=== PATIENT | female | born 1980 | race Caucasian/White ===

== ENCOUNTER 2016-10-17 12:26 | Outpatient (CLI) | payer MEDICAID ==
[~2016-10-17] VITALS: Ht 168.9 cm; Wt 126.1 kg
[2016-10-17] MEDS ORDERED: CARI350T PO (12:38)
[2016-10-17] MEDS ORDERED: ZOLP10TA PO (12:38)
[2016-10-17] MEDS ORDERED: OMEP20TA7 PO (12:38)
[2016-10-17] MEDS ORDERED: TOPI200C5 PO (12:38)
[2016-10-17] MEDS ORDERED: OXYC-202 PO (12:38)
[2016-10-17] MEDS ORDERED: DICY10CA59 PO (12:38)
[2016-10-17] MEDS ORDERED: FENT1PAT11 TD (12:38)
[2016-10-17] MEDS ORDERED: HYDR12.56 PO (12:38)
[2016-10-17 12:55] VITALS: BP 120/74
[2016-10-17 13:04] LABS: BASOPHILS % (AUTO) 0 % (0-10); EOSINOPHILS # (AUTO) 0.2 10^3/uL (0.0-0.3); EOSINOPHILS % (AUTO) 3 % (0-10); LYMPHOCYTES % (AUTO) 35 % (12-44); MEAN CORPUSCULAR HEMOGLOBIN 30 PG (25-34); MEAN CORPUSCULAR HGB CONC 35 G/DL (32-36); MEAN CORPUSCULAR VOLUME 87 FL (80-99); MONOCYTES # (AUTO) 0.4 X 10^3 (0.0-1.0); MONOCYTES % (AUTO) 6 % (0-12); NEUTROPHILS # (AUTO) 3.2 X 10^3 (1.8-7.8); NEUTROPHILS % (AUTO) 55 % (42-75); PLATELET COUNT 223 10^3/uL (130-400); RED BLOOD COUNT 4.39 10^6/uL (4.35-5.85); RED CELL DISTRIBUTION WIDTH 14.9 % (10.0-14.5); WHITE BLOOD COUNT 5.8 10^3/uL (4.3-11.0)
[2016-10-17 13:18] LABS: ALANINE AMINOTRANSFERASE 25 U/L (0-55); ALBUMIN 3.8 G/DL (3.2-4.5); ANION GAP 4 MMOL/L (5-14); ASPARTATE AMINO TRANSFERASE 20 U/L (5-34); BILIRUBIN,TOTAL 0.3 MG/DL (0.1-1.0); BLOOD UREA NITROGEN 14 MG/DL (7-18); BUN/CREATININE RATIO 23; CALCIUM 8.7 MG/DL (8.5-10.1); CARBON DIOXIDE 27 MMOL/L (21-32); CHLORIDE 110 MMOL/L (98-107); CREATININE SERUM 0.61 MG/DL (0.60-1.30); GFR ESTIMATED > 60; GLUCOSE 100 MG/DL (70-105); POTASSIUM 3.5 MMOL/L (3.6-5.0); SODIUM 141 MMOL/L (135-145); TOTAL PROTEIN 6.6 G/DL (6.4-8.2)
== END 2016-10-17 12:50 | disposition home or self-care (01) ==
LOC: PREOP 12:26
PROVIDERS: ATTEND Surgery
DX: Z01.812 Encounter for preprocedural laboratory examination (principal); Z11.2 Encounter for screening for other bacterial diseases; K81.9 Cholecystitis, unspecified
CPT/HCPCS: 36415; 80053; 85025; 87081

== ENCOUNTER 2016-10-21 07:34 | Day surgery (SDC) | payer MEDICAID ==
[~2016-10-21] VITALS: Ht 168.9 cm; Wt 126.1 kg
[2016-10-21 07:33] VITALS: BP 125/87
[~2016-10-21 07:34] MED LIST: CARI350T PO; DICY10CA59 PO; FENT1PAT11 TD; HYDR12.56 PO; OMEP20TA7 PO; OXYC-202 PO; TOPI200C5 PO; ZOLP10TA PO
[2016-10-21] MEDS ORDERED: ceFAZolin 2 GM/NS 50 ML IV ONE (07:45)
[2016-10-21] MEDS ORDERED: LIDOCAINE/EPI 1%-1:100,000 (XYLOCAINE) 20ML ONE ×2 (07:50→09:47)
[2016-10-21] MEDS ORDERED: FAMOTIDINE 20MG/2ML IV (PEPCID) IV ONE (08:00)
[2016-10-21] MEDS ORDERED: ONDANSETRON 4 MG/2 ML (SDV) Z0FRAN IV ONE (08:00)
[2016-10-21] MEDS: LACTATED RINGERS 1,000 ML IV PRN ×3 (08:27→12:09)
[2016-10-21] MEDS ORDERED: DEXAMETHASONE PF 10 MG/ML (DECADRON) VIAL ONE (08:36)
[2016-10-21] MEDS ORDERED: LIDOCAINE PF 2% 10 ML (XYLOCAINE) AMP ONE (08:36)
[2016-10-21] MEDS ORDERED: ONDANSETRON 4 MG/2 ML (SDV) Z0FRAN ONE ×2 (08:36→10:49)
[2016-10-21] MEDS ORDERED: SEVOFLURANE (ULTANE) 15 ML INHAL SOLN ONE ×4 (08:36→11:09)
[2016-10-21] MEDS ORDERED: proPOfol 200 MG/20 ML (DIPRIVAN) VIAL IV ONE (08:36)
[2016-10-21] MEDS ORDERED: ROCURONIUM 50 MG/5 ML (ZEMURON) VIAL IV ONE ×2 (08:36→10:15)
[2016-10-21] MEDS ORDERED: LACTATED RINGERS 1,000 ML IV ONE ×3 (08:36→11:38)
[2016-10-21] MEDS ORDERED: MIDAZOLAM 2 MG/2 ML (VERSED) VIAL ONE (08:37)
[2016-10-21] MEDS ORDERED: fentaNYL INJECTION 250 MCG/5 ML AMP ONE (08:37)
--- NOTE | 2016-10-21 09:11 | Progress Note-Pre Operative ---
Pre-Operative Progress Note H&P Reviewed The H&P was reviewed, patient examined and no changes noted. Date H&P Reviewed: Oct 21, 2016 Time H&P Reviewed: 09:02 Pre-Operative Diagnosis: Cholelithiasis/cholecystitis OLY MARQUEZ DO Oct 21, 2016 09:11
[2016-10-21] MEDS ORDERED: ceFAZolin 1,000 MG (ANCEF) VIAL ONE (09:31)
[2016-10-21] MEDS ORDERED: ceFAZolin INJECTION 1,000 MG in NS (IVPB) 50 ML IV ONE (10:00)
[2016-10-21] MEDS ORDERED: HYDROmorphone (DILAUDID) 2 MG/ML VIAL ONE (10:49)
[2016-10-21] MEDS ORDERED: fentaNYL INJECTION 100 MCG/2 ML AMP ONE ×2 (10:49→11:08)
[2016-10-21] MEDS ORDERED: NEOSTIGMINE (BLOXIVERZ ) 1 MG/1ML 10 ML VIAL ONE (11:00)
[2016-10-21] MEDS ORDERED: GLYCOPYRROLATE 0.2 MG/ML (ROBINUL) 2 ML VIAL ONE (11:00)
--- NOTE | 2016-10-21 11:24 | Progress Note-Post Operative ---
Post-Operative Progess Note Surgeon (s)/Steam Gigger (s) Surgeon OLY MARQUEZ DO Steam Gigger: Chucho Pre-Operative Diagnosis Cholelithiasis/cholecystitis Post-Operative Diagnosis Same plus Adhesions Incarcerated Ventral/Incisional hernia MO Post-Op Procedure Note Date of Procedure: Oct 21, 2016 Name of Procedure Performed: Lap Winter w/ IOC and extensive CHAPIS Description of the Procedure: Lap winter Findings of the Procedure extensive adhesions, incarcerated vent/inc hernia Anesthesia Type GET Estimated blood loss (mL): less than 20ml Specimen(s) collected/removed GB and contents Hernia Sac OLY MARQUEZ DO Oct 21, 2016 11:24
--- NOTE | 2016-10-21 11:30 | Diagnostic Imaging Report ---
INDICATION: Right upper quadrant pain. DISCUSSION: Fluoroscopic support was provided during intraoperative cholangiogram. Please see the operative report for full detail. There is progression of contrast into the duodenum. Fluoroscopy time: 43 seconds. Contrast: 7 mL Omnipaque 300. IMPRESSION: Intraoperative cholangiogram. Dictated by: Dictated on workstation # [id number]
--- NOTE | 2016-10-21 11:30 | Discharge Inst-Surgical ---
Discharge Inst-Surgical Depart Medication/Instructions New, Converted or Re-Newed RX: Other Patient Instructions Follow up Appt: Make appointment for 1 week. [phone] Instructions: No lifting greater than 10 pounds. No strenuous activity. May shower in 24 hours, no tub bath or soaking. Use incentive spirometer at home as directed. No Smoking Skin/Wound Care: May remove bandages, am 4/4 Symptoms to Report: Appetite Changes, Extremity Discoloration, Numbness/Tingling, Swelling Increased , Bleeding Excessive, Eyesight Changes, Pain Increased, Urine Color Change, Constipation(Persistent), Fever over 101 degree F, Pain/Pressure in chest, Urinating Difficulty, Cough Up/Vomit Blood, Heart Beat Irreg/Pounding, Pain/ Pressure in jaw, Vaginal Bleeding Increase, Cramps in feet or legs, Lightheadedness, Pain/Pressure in shoulder, Diarrhea(Persistent), Memory Changes Suddenly, Questions/Concerns, Weight gain consecutive days, Dizziness/ Fainting, Nausea/Vomiting, Shortness of Breath, Weight gain over 2 pounds. If eyes or skin turn yellow notify physician. If questions or concerns contact your physician Or seek help at emergency department. Activity Activity as Tolerated: Yes Activity Instructions: Avoid Pulling & Pushing, Avoid Stress to Incision, No Sports Driving Instructions: No Driving/Refer to Dr. Starr Discharge Diet: Low Fat/Low Cholesterol If Any Problems/Questions/Issu: Contact Your Physician, Go to Emergency Room Skin/Wound Care Infection Signs and Symptoms: Increased Redness, Foul Odor of Wound, Increased Drainage, Skin Itchy or Has a Rash, Increased Swelling, Temperature Above 101 F Bathing Instructions: Shower Stitches/[place]/Dermabond Dis: Dermabond Ice Pack: Ice On and Off Site OLY MARQUEZ DO Oct 21, 2016 11:30
[2016-10-21] MEDS: HYDROmorphone (DILAUDID) 2 MG/ML VIAL IVP PRN ×3 (11:33→11:53)
[2016-10-21] MEDS: fentaNYL INJECTION 100 MCG/2 ML AMP IVP PRN ×2 (11:38→11:46)
[2016-10-21] MEDS ORDERED: ONDANSETRON 4 MG/2 ML (SDV) Z0FRAN IVP PRN (11:45)
[2016-10-21] MEDS ORDERED: MEPERIDINE (DEMEROL) INJ 50 MG/ML IVP PRN (11:45)
[2016-10-21] MEDS ORDERED: PROMETHAZINE INJ 25 MG/ML (PHENERGAN) AMP IVP PRN (11:45)
[2016-10-21] MEDS ORDERED: PROMETHAZINE INJ 25 MG/ML (PHENERGAN) AMP ONE (11:55)
[2016-10-21 12:30] VITALS: BP 114/93
[2016-10-21] MEDS ORDERED: oxyCODONE/APAP 10/325MG (PERCOCET 10) TABLET PO ONE (12:36)
[2016-10-21] MEDS ORDERED: oxyCODONE/APAP 10/325MG (PERCOCET 10) TABLET PO PRN (12:45)
[2016-10-21 13:00] VITALS: BP 130/89
[2016-10-21 13:30] VITALS: BP 143/90
[2016-10-21] MEDS ORDERED: PROMETHAZINE INJ 25 MG/ML (PHENERGAN) AMP IVP ONE (13:30)
[2016-10-21 15:05] VITALS: BP 143/90
--- NOTE | 2016-10-22 10:50 | OPERATIVE REPORT ---
PROCEDURE PHYSICIAN: OLY PUTNAM DATE OF PROCEDURE: 10/21/2016 PREOPERATIVE DIAGNOSIS: 1. Cholelithiasis with cholecystitis. 2. Ventral incisional hernia. POSTOPERATIVE DIAGNOSIS: 1. Cholecystitis with cholelithiasis. 2. Incarcerated incisional ventral hernia. 3. Extensive adhesions. SURGEON: Dr. Putnam GREASE RENDERER: Dr. Rankin. ANESTHESIA: General endotracheal tube. PROCEDURE: Laparoscopic cholecystectomy with intraoperative cholangiogram. SPECIMENS: 1. Gallbladder and contents. 2. Hernia sac. BLOOD LOSS: Less than 20 mL. FLUIDS: Per anesthesia. POSTOPERATIVE: Stable. INDICATION FOR THE PROCEDURE: The patient is a 36-year-old female has been having pain in the right lower quadrant, associated with fried and fatty foods. She had an ultrasound performed which showed multiple stones in the gallbladder and diagnosed with cholelithiasis and cholecystitis. FINDINGS: The patient had extensive adhesions from her previous surgeries. She had a gastric bypass. She had a very long dilated gallbladder. Cholangiogram did not show any stones in the duct. She also had an incarcerated incisional ventral hernia. PROCEDURE NOTE: After informed consent was obtained patient brought to the operating room, placed on the table in supine position. She was sterilely prepped and draped in the normal fashion. Local lidocaine used to infiltrate the skin and midline, right on the previous incision. Made an incision with a number 11 blade, carried down through skin into subcutaneous tissue, deepened down to the subcutaneous tissue with blunt dissection as well as the Bovie electrocautery. Actually it was up high enough, could feel a small fascial defect probably a 1 1/2 to 2 cm defect. Able to grasp this and go through the hernia sac and finally get a spot and place the 11 mm trocar port. Able to get in with the camera and then placed 2 more ports in the right upper quadrant in the normal fashion using local lidocaine and an 11 blade for stab incision and the VersaStep system all done under direct visualization. I then started taking down adhesions; took some adhesions in the midline to be able to get the 11 mm trocar port in further and blow up the balloon, held in place. Then started taking down some adhesions across the falciform. Once I had taken these adhesions down then placed another port subxiphoid again using the VersaStep with a local lidocaine 11 blade for stab incision and the VersaStep trocar system. Once this was done then started taking down the adhesions to the liver. There is a lot of omentum stuck on the liver and to the gallbladder. This was extensive lysis of adhesions, probably took about an hour just to take down all the adhesions until we could free up the gallbladder taking care to stay way from any intestine. Upon entering noted the gallbladder is very dilated. Again had a lot of adhesions to it. We had to grasp the gallbladder almost half way down to be able to get good position. Grasped the gallbladder and took in the superior direction and then continued dissecting adhesions. Once we had finally freed the gallbladder up and actually the liver from all adhesions, then able to grasp down Abi's pouch and pulled in an inferolateral direction and started dissecting out the cystic duct and cystic artery. Able to get around the cystic duct. Placed one clip distally then get around the cystic artery. Placed one clip distally, two proximally. Cut the cystic duct half way through with Metzenbaum scissors. Placed cholangiogram catheter and shot the cholangiogram. It took two times, the second time able to get good spillage of dye down the common bile duct into the small intestine as well as up into the common hepatic and the right and left hepatics. Next, removed the cholangiogram catheter, placed 2 clips proximally on the cystic duct and cut the cystic duct and cystic artery with Metzenbaum scissors and started dissecting the gallbladder off the bed of the liver. Encountered the posterior branch of the cystic artery clipped twice proximally once distally and then cauterized in between to cut the duct and then continued taking the gallbladder off the bed of the liver with the L hook cautery. Once this was completely removed switched to a 5 mm camera. Paced the Endobag into the abdomen and then placed the gallbladder into the bag and then removed this through the supraumbilical incision. Placed the port back in the abdomen. At this point trying to plan the next surgery, ventral herniorrhaphy, went to the left side of the abdomen and were we replaced the port for the hernia procedure. There was a lot of adhesion; these were then carefully taken down as well so they would not be in our way. Then looked around, copiously irrigated with normal saline. No bleeding from the liver, suctioned this out. No other bleeding. The patient had been reversed Trendelenburg and rotated left. She was then placed supine and then removed all ports under direct visualization. Elected to cut off the hernia sac at the superior portion; cut this off and passed this off the table. Grasped the edges with 2 Kochers and then closed this fascial defect with 0 Vicryl [id number] suture; two of these were used to close this defect. Had palpated on the inside and could feel another defect lower but had talked with the patient, cannot fix these at this time. They are going to need mesh. Copiously irrigated all incisions with normal saline. Closed the supraumbilical incision with three 3-0 Vicryl subcutaneous sutures then closed the skin with 4-0 undyed Monocryl, five interrupted subcuticular stitches. The three small 5 millimeters incisions were closed with a single interrupted 4-0 undyed Monocryl subcuticular stitches. The area was clean and dried and Dermabond placed. The patient then transferred to recovery room in stable condition. Sponge and needle counts were correct at the end of the case. Dr. Rankin assisted in identifying anatomy, with retraction and with closure of the abdomen. Job ID: [id number] Dictated Date: 10/21/2016 11:51:23 Chalker Soles Date: 10/22/2016 10:29:59 / pernell
== END 2016-10-21 15:05 | disposition home or self-care (01) ==
LOC: SDC 07:34
PROVIDERS: ATTEND Surgery
DX: K80.10 Calculus of gallbladder with chronic cholecystitis without obstruction (principal); K43.0 Incisional hernia with obstruction, without gangrene
CPT/HCPCS: 84703; 88302; 88304

== ENCOUNTER → 2016-12-20 | Outpatient (CLI) | payer SELFPAY ==
[~2016-12-20] MED LIST changes: +LORA2ORA PO
== END ==
LOC: PREOP 12:27
PROVIDERS: ATTEND Surgery
DX: Z01.818 Encounter for other preprocedural examination (principal); K43.2 Incisional hernia without obstruction or gangrene

== ENCOUNTER → 2016-12-23 | Day surgery (SDC) | payer MEDICAID ==
[~2016-12-23] VITALS: Ht 168.9 cm; Wt 126.1 kg
[~2016-12-23] MED LIST changes: +DEXAMETHASONE PF 10 MG/ML (DECADRON) VIAL ONE; +FAMOTIDINE 20MG/2ML IV (PEPCID) IV ONE; +GLYCOPYRROLATE 0.2 MG/ML (ROBINUL) 2 ML VIAL ONE; +HYDROmorphone (DILAUDID) 2 MG/ML VIAL ONE; +LACTATED RINGERS 1,000 ML IV PRN; +LACTATED RINGERS 2,000 ML IV ONE; +LIDOCAINE PF 2% 5 ML (XYLOCAINE) VIAL ONE; +LIDOCAINE/EPI 1%-1:100,000 (XYLOCAINE) 20ML ONE; +MIDAZOLAM 2 MG/2 ML (VERSED) VIAL ONE; +NEOSTIGMINE (BLOXIVERZ ) 1 MG/1ML 10 ML VIAL ONE; +ONDANSETRON 4 MG/2 ML (SDV) Z0FRAN IVP PRN; +ONDANSETRON 4 MG/2 ML (SDV) Z0FRAN ONE; +PROMETHAZINE INJ 25 MG/ML (PHENERGAN) AMP IVP PRN; +ROCURONIUM 50 MG/5 ML (ZEMURON) VIAL IV ONE; +SEVOFLURANE (ULTANE) 15 ML INHAL SOLN ONE; +ceFAZolin 2 GM/NS 50 ML IV ONE; +fentaNYL INJECTION 100 MCG/2 ML AMP IV ONE; +fentaNYL INJECTION 100 MCG/2 ML AMP IVP ONE; +fentaNYL INJECTION 100 MCG/2 ML AMP IVP PRN; +fentaNYL INJECTION 250 MCG/5 ML AMP ONE; +morphine INJ 10 MG/ML 1ML (SYR OR VIAL) IVP PRN; +morphine INJ 4 MG/ML 1 ML (VIAL/SYRINGE) ONE; +oxyCODONE/APAP 10/325MG (PERCOCET 10) TABLET PO ONE; +proPOfol 200 MG/20 ML (DIPRIVAN) VIAL IV ONE
[2016-12-23 09:15] VITALS: BP 130/89
--- NOTE | 2016-12-23 13:21 | Progress Note-Pre Operative ---
Pre-Operative Progress Note H&P Reviewed The H&P was reviewed, patient examined and no changes noted. Time Seen by Provider: 12:37 Date H&P Reviewed: Dec 23, 2016 Time H&P Reviewed: 12:37 Pre-Operative Diagnosis: Incarcerated Incisional/Ventral Hernia OLY MARQUEZ DO Dec 23, 2016 13:21
--- NOTE | 2016-12-23 14:53 | Progress Note-Post Operative ---
Post-Operative Progess Note Surgeon (s)/Real Estate Professional (s) Surgeon OLY MARQUEZ DO Real Estate Professional: Chucho Pre-Operative Diagnosis Incarcerated Incisional/Ventral Hernia Post-Operative Diagnosis Same plus adhesions Procedure & Operative Findings Date of Procedure 12/23/16 Procedure Performed/Findings Lap Ventral/Inc herniarraphy with mesh placement Anesthesia Type GET Estimated Blood Loss Estimated blood loss (mL): less than 10 ml Specimens/Packing Specimens Removed hernia sac OLY MARQUEZ DO Dec 23, 2016 14:52
[2016-12-23] MEDS: HYDROmorphone (DILAUDID) 2 MG/ML VIAL IVP PRN ×4 (14:55→15:25)
--- NOTE | 2016-12-23 14:56 | Discharge Inst-Surgical ---
Discharge Inst-Surgical Depart Medication/Instructions New, Converted or Re-Newed RX: Other (Pt already has home pain meds) Patient Instructions Follow up Appt: Make appointment for 1 week. Instructions: No lifting greater than 10 pounds. No strenuous activity. May shower in 24 hours, no tub bath or soaking. Use incentive spirometer at home as directed. No Smoking Skin/Wound Care: May remove band-Aids in am. Dermabond will start to peel off in 1-2 weeks Symptoms to Report: Appetite Changes, Extremity Discoloration, Numbness/Tingling, Swelling Increased , Bleeding Excessive, Eyesight Changes, Pain Increased, Urine Color Change, Constipation(Persistent), Fever over 101 degree F, Pain/Pressure in chest, Urinating Difficulty, Cough Up/Vomit Blood, Heart Beat Irreg/Pounding, Pain/ Pressure in jaw, Vaginal Bleeding Increase, Cramps in feet or legs, Lightheadedness, Pain/Pressure in shoulder, Diarrhea(Persistent), Memory Changes Suddenly, Questions/Concerns, Weight gain consecutive days, Dizziness/ Fainting, Nausea/Vomiting, Shortness of Breath, Weight gain over 2 pounds If questions or concerns contact your physician Or seek help at emergency department. Activity Activity as Tolerated: Yes Activity Instructions: Avoid Pulling & Pushing, Avoid Stress to Incision Driving Instructions: No Driving/Refer to Dr. Starr Discharge Diet: No Restrictions Diet After 24 Hours: Clear Liquid if Nauseous If Any Problems/Questions/Issu: Contact Your Physician, Go to Emergency Room Skin/Wound Care Infection Signs and Symptoms: Increased Redness, Foul Odor of Wound, Increased Drainage, Skin Itchy or Has a Rash, Increased Swelling, Temperature Above 101 F Wound Care Comment: Heating pad for neck and shoulder may be helpful tonight Bathing Instructions: Shower Operative Area Clean and Dry: Keep Incision Clean/Dry Stitches/Raquel/Dermabond Dis: Dermabond Ice Pack: Ice On and Off Site (for pain as needed) OLY MARQUEZ DO Dec 23, 2016 14:56
[2016-12-23 16:00] VITALS: BP 135/89
[2016-12-23 16:30] VITALS: BP 130/89
[2016-12-23 17:00] VITALS: BP 129/82
[2016-12-23 17:30] VITALS: BP 129/82
--- NOTE | 2016-12-24 22:01 | OPERATIVE REPORT ---
DATE OF SERVICE: 12/23/2016 PREOPERATIVE DIAGNOSES: 1. Ventral incisional incarcerated hernia. 2. Morbid obesity. POSTOPERATIVE DIAGNOSES: 1. Ventral incisional incarcerated hernia. 2. Morbid obesity. PROCEDURE: Laparoscopic ventral incisional herniorrhaphy with mesh placement. SURGEON: Dr. Putnam. HOT BLASTER: Dr. Rankin. ANESTHESIA: General endotracheal tube. SPECIMEN: Hernia sac. BLOOD LOSS: Less than 10 mL. FLUIDS: Per anesthesia. POSTOPERATIVE: Stable. INDICATION FOR PROCEDURE: The patient is a 36-year-old female who has been having pain in the midline of her upper epigastric area. This is seen on CT and on previous lap gunnar as an incarcerated ventral incisional hernia. FINDINGS: The patient had an incarcerated ventral incisional hernia closed primarily and then mesh placed. PROCEDURE NOTE: After informed consent was obtained, the patient was brought to the operating room and placed on the table in supine position. She was prepped and draped in the normal fashion. Local lidocaine was used to infiltrate the left upper quadrant and then made and incision with a #11 blade, carried down through the skin into the subcutaneous tissue, then deep down through the subcutaneous tissue Bovie electrocautery down to the fascia. The fascia was incised with electrocautery. Bluntly the muscle and went through the posterior fascia and then bluntly entered the abdomen, placed 0-Vicryl figure of eight suture and then placed 11mm trocar port under direct visualization. She had multiple adhesions in the upper abdomen, able to place two more ports in the normal fashion using local lidocaine and an 11-blade for the stab incision and the VersaStep system, all done under direct visualization, one in the left lower quadrant, one in the right midline just a little bit below the level of the umbilicus. Then, using LigaSure I started taking down these adhesions to get these off the abdominal wall, carefully taking these down so that we could get a good look at the area. She also had adhesions above the liver. These were also carefully taken down with a LigaSure, clamping, coagulating and transecting, and then carefully pulling the omentum and fat out of the ventral incisional hernia. Once we completely removed it and removed a portion of the hernia sac, passed this off the table. She also appeared to have a portion of the stomach up, attached to the abdominal wall above the liver in the left upper quadrant. This was left alone. Cleared enough space to be able to place a piece of mesh, but first elected to close this hernia defect that looked to be about 3 or 4 cm, elected to pass an 0-Vicryl. I made a small stab incision above the defect and then passed the 0-Vicryl with a DaveVern to make a [id number] to close this. It closed nicely; I actually took a picture before and after, and then elected to place a Bard mesh. The mesh had balloon to hold it in place. This was placed into the abdomen through the left lowed quadrant port incision and then grasped the catheter and pulled this up through the small stab incision and then blew up the balloon to hold it up in place so we could see abdominal wall. It was a 4-1/2 inch mesh to be able to leave good margins, about four to five cm on either side to cover this hernia defect. This was then tacked in place with a Securestrap, tacking it 12, nine, six and three o'clock position and in between at about one cm intervals, removed the balloon and then tacked another set of tacks in the middle to, again, hold this mesh in good position. The pneumoperitoneum escaped a little bit and mesh still stayed up nicely in good position and at this point then removed all ports and direct visualization, allowing the pneumoperitoneum to escape, as well as suction it out. Closed the left upper quadrant incision, closing the fascia with 0-Vicryl suture previously placed, copiously irrigated all incisions with normal saline, closing the left lower quadrant incision with three interrupted 4-0 Undyed Monocryl subcuticular stitches, closed the small five mm incisions with single interrupted 4-0 Undyed Monocryl subcuticular stitch and also closed the small stab incision where we had closed the hernia defect primarily, as well as brought the catheter for the balloon up, closed this with another 4-0 Undyed Monocryl subcuticular stitch. Area was cleaned and dried, Dermabond placed and patient then transferred to recovery room in stable condition. Sponge, instrument and needle count correct at the end of the case. Dr. Rankin assisted in this case. He made incisions, placed ports, helped close, helped identify anatomy and used the LigaSure as well to take down some of the adhesions. His work was necessary in this case. Job ID: [id number] DocumentID: [id number] Dictated Date: 12/24/2016 13:54:53 Human Resource Analyst Date: 12/24/2016 22:00:37 Dictated By: DO BARBI VAUGHN
== END | disposition home or self-care (01) ==
LOC: SDC 08:04
PROVIDERS: ATTEND Surgery
DX: K43.2 Incisional hernia without obstruction or gangrene (principal); E66.01 Morbid (severe) obesity due to excess calories; Z68.41 Body mass index [BMI] 40.0-44.9, adult; Z79.899 Other long term (current) drug therapy
CPT/HCPCS: 84703; 87081

== ENCOUNTER 2021-07-30 05:35 | Outpatient (CLI) | payer MEDICAID ==
[~2021-07-30] VITALS: Ht 167.6 cm; Wt 143.0 kg
[~2021-07-30 05:35] MED LIST changes: -DEXAMETHASONE PF 10 MG/ML (DECADRON) VIAL ONE; -FAMOTIDINE 20MG/2ML IV (PEPCID) IV ONE; -GLYCOPYRROLATE 0.2 MG/ML (ROBINUL) 2 ML VIAL ONE; -HYDROmorphone (DILAUDID) 2 MG/ML VIAL ONE; -LACTATED RINGERS 1,000 ML IV PRN; -LACTATED RINGERS 2,000 ML IV ONE; -LIDOCAINE PF 2% 5 ML (XYLOCAINE) VIAL ONE; -LIDOCAINE/EPI 1%-1:100,000 (XYLOCAINE) 20ML ONE; -MIDAZOLAM 2 MG/2 ML (VERSED) VIAL ONE; -NEOSTIGMINE (BLOXIVERZ ) 1 MG/1ML 10 ML VIAL ONE; -ONDANSETRON 4 MG/2 ML (SDV) Z0FRAN IVP PRN; -ONDANSETRON 4 MG/2 ML (SDV) Z0FRAN ONE; -OXYC-202 PO; +OXYC1TAB12 PO; -PROMETHAZINE INJ 25 MG/ML (PHENERGAN) AMP IVP PRN; -ROCURONIUM 50 MG/5 ML (ZEMURON) VIAL IV ONE; -SEVOFLURANE (ULTANE) 15 ML INHAL SOLN ONE; -ceFAZolin 2 GM/NS 50 ML IV ONE; -fentaNYL INJECTION 100 MCG/2 ML AMP IV ONE; -fentaNYL INJECTION 100 MCG/2 ML AMP IVP ONE; -fentaNYL INJECTION 100 MCG/2 ML AMP IVP PRN; -fentaNYL INJECTION 250 MCG/5 ML AMP ONE; -morphine INJ 10 MG/ML 1ML (SYR OR VIAL) IVP PRN; -morphine INJ 4 MG/ML 1 ML (VIAL/SYRINGE) ONE; -oxyCODONE/APAP 10/325MG (PERCOCET 10) TABLET PO ONE; -proPOfol 200 MG/20 ML (DIPRIVAN) VIAL IV ONE
[2021-07-31] MEDS ORDERED: DULO60CA7 PO (13:02)
[2021-07-31] MEDS ORDERED: CYCL10TA25 PO (13:02)
[2021-07-31] MEDS ORDERED: MV-M1TAB20 PO (13:02)
[2021-07-31] MEDS ORDERED: AMIT50TA3 PO (13:02)
[2021-07-31] MEDS ORDERED: GABA300S2 PO (13:02)
[2021-07-31] MEDS ORDERED: FERR-84 PO (13:02)
[2021-07-31] MEDS ORDERED: CLN.2T PO (13:02)
== END 2021-07-31 14:05 | disposition home or self-care (01) ==
LOC: PREOP 05:35
PROVIDERS: ATTEND Surgery
DX: Z01.818 Encounter for other preprocedural examination (principal)

== ENCOUNTER → 2021-08-06 | Day surgery (SDC) | payer MEDICARE, MEDICAID ==
[~2021-08-06] VITALS: Ht 167 cm; Wt 149.0 kg
[~2021-08-06] MED LIST changes: +AMIT50TA3 PO; +CLN.2T PO; +CYCL10TA25 PO; +DULO60CA7 PO; +FERR-84 PO; +GABA300S2 PO; +LACTATED RINGERS 1,000 ML IV STA; +MV-M1TAB20 PO; +PROPOFOL INJECTION 50 ML IV ONE
[2021-08-06 07:59] VITALS: BP 142/93
--- NOTE | 2021-08-06 08:23 | Progress Note-Pre Operative ---
Pre-Operative Progress Note H&P Reviewed The H&P was reviewed, patient examined and no changes noted. Time Seen by Provider: 08:18 Date H&P Reviewed: Aug 06, 2021 Time H&P Reviewed: 08:18 Pre-Operative Diagnosis: rectal bleeding OLY MARQUEZ DO Aug 06, 2021 08:23
[2021-08-06 08:45] VITALS: BP 112/83
[2021-08-06 08:48] VITALS: BP 112/83
[2021-08-06 09:20] VITALS: BP 128/75
--- NOTE | 2021-08-06 09:21 | Progress Note-Post Operative ---
Post-Operative Progess Note Surgeon (s)/Websphere Architect (s) Surgeon OLY MARQUEZ DO Websphere Architect: [place] Pro Pre-Operative Diagnosis rectal bleeding Post-Operative Diagnosis same plus fecal impaction Procedure & Operative Findings Date of Procedure 08/06/21 Procedure Performed/Findings Flexible Sigmoidoscopy PROCEDURE NOTE: After informed consent was obtained, the patient was brought to the endoscopy suite, placed in bed in left lateral decubitus position. She was administered IV sedation by the PHOTOGRAPHIC EQUIPMENT ASSEMBLER who then monitored her vitals the entire time, heart rate, blood pressure and pulse ox and the scope was inserted. Unfortunately, immediately encountered fecal material which was obscuring the scope. Pushed up to about 50 cm, maybe to splenic flexure and continued to see fecal material completely covering the segundo. At this point elected to cut the procedure short and remove scope. Coming down the descending colon down, into the sigmoid and then into the rectal vault. Fecal material in vault also and therefore did not retroflex the scope. Took a picture as I pulled scope out of rectum. The patient tolerated the procedure. She was recovered in endoscopy suite. Anesthesia Type IV sedation by PHOTOGRAPHIC EQUIPMENT ASSEMBLER Estimated Blood Loss Estimated blood loss (mL): none Specimens/Packing Specimens Removed none OLY MARQUEZ DO Aug 06, 2021 09:21
--- NOTE | 2021-08-06 09:23 | Endoscopy Discharge Instruct ---
Endo Procedure/Findings Findings 1.: Other Findings (fecal impaction) Discharge Instructions - Activity: You might feel a little sleepy until tomorrow. This is due to the medicine you received to relax you. Until tomorrow, you should: NOT drive a car, operate machinery or power tools. NOT drink any alcoholic beverages. NOT make any important decisions or sign importortant papers. Do not return to work until tomorrow, unless otherwise instructed. Resume previous activities tomorrow. Diet: Start by taking liquids. If you tolerate liquids, advance to solid food. 1.: Other Recommendation (Repeat soon, at pt's convenience) Notify Physician - If you experience excessive bleeding, unusual abdominal pain, fever, or chest pain, contact your doctor immediately. Follow-Up: Reconcile Patient Problems Final Diagnosis I offered pt option of clears and Mg Citrate to try and do colonoscopy tomorrow and she wanted to reschedule for a different day. OLY MARQUEZ DO Aug 06, 2021 09:23
--- NOTE | 2021-08-06 09:26 | Anesthesia-General Post-Op ---
MAC Patient Condition Mental Status/LOC: Same as Preop Cardiovascular: Satisfactory Nausea/Vomiting: Absent Respiratory: Satisfactory Pain: Controlled Complications: Absent Post Op Complications Complications None Follow Up Care/Instructions Patient Instructions None needed. Anesthesiology Discharge Order Discharge Order Patient is doing well, no complaints, stable vital signs, no apparent adverse anesthesia problems. No complications reported per nursing. JUAN LINARES CRNA Aug 06, 2021 09:26
== END ==
LOC: ENDO 07:31
PROVIDERS: ATTEND Surgery
DX: K62.5 Hemorrhage of anus and rectum (principal); K56.41 Fecal impaction; I10 Essential (primary) hypertension; G43.909 Migraine, unspecified, not intractable, without status migrainosus; G62.9 Polyneuropathy, unspecified; E11.40 Type 2 diabetes mellitus with diabetic neuropathy, unspecified; E66.01 Morbid (severe) obesity due to excess calories; R19.4 Change in bowel habit; R10.84 Generalized abdominal pain; F41.9 Anxiety disorder, unspecified; Z79.899 Other long term (current) drug therapy; Z79.84 Long term (current) use of oral hypoglycemic drugs; Z68.43 Body mass index [BMI] 50.0-59.9, adult; Z79.891 Long term (current) use of opiate analgesic; Z90.49 Acquired absence of other specified parts of digestive tract; Z90.89 Acquired absence of other organs; Z80.3 Family history of malignant neoplasm of breast
CPT/HCPCS: 84703